=== PATIENT | female | born 1985 | race Two or more races ===

== ENCOUNTER 2024-12-29 06:10 | Day surgery (SDC) | payer MEDICAID ==
[2024-12-24 15:07] LABS: Urine Bacteria None Seen /hpf (None Seen)
[2024-12-24 15:22] LABS: Basophils # (auto) 0.1 10 ^3/uL (0-0.2); Basophils % (auto) 0.4 % (0.0-2.0); Eosinophils # (auto) 0 10 ^3/uL (0-0.8); Eosinophils % (auto) 0.1 % (0.0-7.0); Hematocrit 45.4 % (36.0-46.0); Hemoglobin 16.2 g/dL (12.2-16.2); Lymphocytes # (auto) 2.6 10 ^3/uL (0.4-5.4); Lymphocytes % (auto) 21.4 % (10.0-50.0); Mean Corpuscular Hemoglobin 32.4 pg (28.0-32.0); Mean Corpuscular Hgb Conc. 35.7 g/dL (32.0-36.0); Monocytes # (auto) 0.7 10 ^3/uL (0-1.3); Monocytes % (auto) 5.9 % (0.0-12.0); Neutrophils # (auto) 8.9 10 ^3/uL (1.6-8.6); Neutrophils % (auto) 72.2 % (37.0-80.0); Nucleated Red Blood Cells % 0.4 %; Platelet Count (auto) 259 10^3/uL (140-450); Red Blood Cells 4.99 10^6/uL (4.0-5.20); Red Cell Distribution Width 13.2 % (11.8-14.3); White Blood Cell 12.3 10^3/uL (4.4-10.8)
[2024-12-24 15:25] LABS: INR 1.06 (0.9-1.15); Partial Thromboplastin Time 29.1 SEC (24.5-34.5); Prothrombin Time 11.2 sec (9.3-11.8)
[2024-12-24 15:58] LABS: Urine Amorphous Crystal FEW /hpf (None Seen); Urine Blood Negative /uL (Negative); Urine Clarity Turbid (Clear); Urine Color Yellow (Yellow); Urine Mucus FEW (None Seen); Urine Protein, UAD 2+ (Negative); Urine Specific Gravity 1.019 (1.001-1.035); Urine Squamous Epithelial Cell MOD /hpf (<5); Urine Urobilinogen 2 mg/dL (Negative); Urine WBC 3 /HPF (0-5)
[2024-12-24 16:25] LABS: Alkaline Phosphatase 102 U/L (46-116); Anion Gap 14 (5-15); BUN/Creatinine Ratio 11.8 (10.0-20.0); Carbon Dioxide 26 mmol/L (20-31); Chloride 101 mmol/L (98-107); Glucose 89 mg/dL (74-106); Potassium 3.8 mmol/L (3.5-5.1); Sodium 141 mmol/L (136-145)
[2024-12-24 16:26] LABS: Bilirubin, Total 0.5 mg/dL (0.2-1.0)
[2024-12-24 16:30] LABS: Alanine Aminotransferase 52 U/L (7-40); Albumin 5.7 g/dL (3.2-4.8); Aspartate Aminotransferase 45 U/L (<34); Blood Urea Nitrogen 8 mg/dL (9-23); Calcium 10.5 mg/dL (8.7-10.4); Total Protein 8.9 g/dL (5.7-8.2)
[~2024-12-29] VITALS: Ht 170.2 cm; Wt 77.1 kg
[~2024-12-29 06:10] MED LIST: AMIT-118 GT; AML5T GT; ATOG10TA PO; BACL20TA PO; CALC-312 PO; CHOL25CH3 PO; DICY10CA GT; DULO20CA PO; GABA-339 PO; HYDR-4491 OR; KEP500T PO; MORP15TA PO; OMEG1400 PO; OXY20CRT PO; UBRO100T2 PO
[2024-12-29] MEDS ORDERED: DexAMETHasone SOD PHOS 10MG/1ML VIAL INJ IV ONE (06:11)
[2024-12-29] MEDS ORDERED: ceFAZolin 2 GM/D5W50ml 50 ML IV ONE (06:32)
[2024-12-29] MEDS ORDERED: MIDAZOLAM HCL 2MG/2ML 2ml VIAL (1mg/ml) ONE (06:41)
[2024-12-29] MEDS ORDERED: HYDROmorphone HCL 2 MG/ML VL/or syr ONE (06:41)
[2024-12-29] MEDS ORDERED: LIDOCAINE 1% INJ PF 5ML AMP ONE (06:41)
[2024-12-29] MEDS ORDERED: fentaNYL CITRATE 100 MCG/2 ML VL ONE (06:41)
[2024-12-29] MEDS ORDERED: ONDANSETRON HCL 4 MG/2 ML VIAL ONE (06:41)
[2024-12-29] MEDS ORDERED: KETAMINE 50mg/ML 1ml syringe ONE (06:41)
[2024-12-29] MEDS ORDERED: PROPOFOL 10 MG/ML 20 ML IV ONE (06:41)
[2024-12-29] MEDS ORDERED: SODIUM CHLORIDE LOCK 10 ML ONE (06:41)
[2024-12-29] MEDS ORDERED: LIDOCAINE HCL 2% TOP JELLY 5ML TOP ONE (06:41)
[2024-12-29] MEDS ORDERED: KETOROLAC TROMETH 30 MG/ML 1ML VIAL IV ONE (06:45)
[2024-12-29] MEDS ORDERED: MORPHINE SULFATE 4 MG/ML SYR/VIAL IV PRN (06:45)
[2024-12-29] MEDS ORDERED: METOCLOPRAMIDE HCL 5MG/ml INJ 2ml VIAL IV ONE (06:45)
[2024-12-29] MEDS ORDERED: HYDROmorphone HCL 2 MG/ML VL/or syr IV PRN (06:45)
[2024-12-29] MEDS ORDERED: MORPHINE SULFATE INJ 2 MG/ml SYRG IV PRN (06:45)
[2024-12-29] MEDS ORDERED: SUCCINYLCHOLINE CHLORIDE 20 MG/ML 10ML VIAL IV ONE (06:56)
[2024-12-29] MEDS ORDERED: ROCURONIUM 10MG/ML 10ML VIAL IV ONE (06:56)
[2024-12-29] MEDS: LIDOCAINE 1% HCL (LOCAL ANESTH.) INJ 20ML MDV ONE (07:59)
[2024-12-29] MEDS: BUPIVACAINE HCL 0.25% P/F 10 ML VIAL ONE (07:59)
[2024-12-29 08:19] VITALS: PULSE 85; RESP 12; O2SAT 98
--- NOTE | 2024-12-29 08:44 | DVH ---
C-ARM FLUOROSCOPY: PROCEDURE: Right ankle hardware removal FLUOROSCOPY TIME: 4.1 sec DAP: 0.09 mgy FINDINGS: Spot intraoperative C arm radiographs demonstrating right ankle hardware . IMPRESSION: Please refer to surgical report for detailed findings.
--- NOTE | 2024-12-29 08:44 | DVH ---
C-ARM FLUOROSCOPY: PROCEDURE: Right ankle hardware removal FLUOROSCOPY TIME: 4.1 sec DAP: 0.09 mgy FINDINGS: Spot intraoperative C arm radiographs demonstrating right ankle hardware . IMPRESSION: Please refer to surgical report for detailed findings.
[2024-12-29] MEDS: HYDROmorphone HCL 2 MG/ML VL/or syr IV PRN (08:52)
[2024-12-29 09:34] VITALS: BP 127/80; PULSE 80; RESP 13; O2SAT 95
--- NOTE | 2025-01-15 13:29 | DVHOP2 ---
Operative Report - 2 Report Details Date: 12/29/24 Preop Diagnosis: Right ankle painful hardware Postop Diagnosis: Right ankle painful hardware Surgeon: Jaime Berman MD [employer] Developer: Vinny HASTINGS Anesthesiologist: Anesthesia: General Consent: The patient was informed of the risks and benefits of the procedure. These include but are not limited to complications of anesthesia, postoperative infection, incomplete relief of symptoms, recurrence of symptoms, damage to blood vessels, nerves and tendons, deep venous thrombosis, pulmonary embolism and possible need for repeat surgery in the future. Estimated Blood Loss: 2 cc Name of Procedure Performed 1. Right ankle hardware removal 2. Intraop fluoroscopy Procedure Details Procedure Details: HISTORY OF PRESENT ILLNESS: Risks/benefits/options and alternatives were discussed in length. Risks associated with anesthesia, infection, damage to nerves and blood vessels, and bleeding or blood clots. Problems after ankle fracture surgery include ankle joint stiffness, weakness, need for further surgery and arthritis. Possible complications after ankle fracture surgery include infection and problems with healing. PROCEDURE: After all potential complications and risks as well as risks and benefits of the above-mentioned procedure was discussed at length with the patient and family, informed consent was obtained. The lower extremity was then confirmed with the operating surgeon, the patient, the nursing staff and Department of Anesthesia. The patient was then transferred to preoperative area in the Operative Suite and placed on the operating room table in supine pos ition. At this time, the anesthesia was performed. All bony prominences were well padded at this time. A nonsterile tourniquet was placed on the l upper thigh of the patient. The lower extremity was sterilely prepped and draped in the usual sterile fashion. The right lower extremity was then elevated and exsanguinated using Esmarch and tourniquet was then placed to 250 mmHg. Next, after all bony and soft tissue landmarks were identified, a 2 cm longitudinal incision was made directly distal to the medial mal. Using guidewire we were able to percutaneously instrument the old hardware. The two screws were then removed. Intraoperative fluoroscopy confirmed removal. No issues with other aspects. tendons gently debrided around medial mal of synovitis. There was no lateralization of the joints. At this time, each wound was copiously irrigated and suctioned dry. The wounds were then closed using #2- 0 Vicryl suture in subcutaneous fashion followed by 3-0 nylon on the skin. A sterile dressing was applied consistent with Jonathan, 4x4s, Kerlix, and Webril. An ankle splint was then placed on the right lower extremity. The patient was transferred back to the [facility] and to the Postanesthetic Care Unit. The patient tolerated the procedure well. There were no complications. Condition Good Disposition Home JAIME BERMAN MD Jan 15, 2025 13:29
== END 2024-12-29 09:50 | disposition home or self-care (01) ==
LOC: SUR 06:10
PROVIDERS: ATTEND Orthopaedic Surgery Adult Reconstructive Orthopaedic Surgery
DX: T84.84XA Pain due to internal orthopedic prosthetic devices, implants and grafts, initial encounter (principal); M65.871 Other synovitis and tenosynovitis, right ankle and foot; G40.909 Epilepsy, unspecified, not intractable, without status epilepticus; I10 Essential (primary) hypertension; M81.0 Age-related osteoporosis without current pathological fracture; G62.9 Polyneuropathy, unspecified; F32.A Depression, unspecified; M19.90 Unspecified osteoarthritis, unspecified site; Z98.890 Other specified postprocedural states; Y83.8 Other surgical procedures as the cause of abnormal reaction of the patient, or of later complication, without mention of misadventure at the time of the procedure
CPT/HCPCS: 20680; 36415; 73610; 80053; 81001; 84702; 85025; 85610; 85730; J0330; J0690; J1100; J1171; J2003; J2250; J2405; J2704; J3010; J3490; 76000